=== PATIENT | male | born 1980 | race Caucasian/White ===

== ENCOUNTER 2021-12-21 16:30 | Emergency (ER) | payer OTHER ==
[~2021-12-21] VITALS: Ht 175.3 cm; Wt 65.8 kg
[2021-12-21 16:32] VITALS: BP 116/72
[2021-12-21] MEDS ORDERED: ANTIHEMOPHILIC FACTOR RECOMBINANT IV (16:36)
== END 2021-12-21 18:25 | disposition home or self-care (01) ==
LOC: ER 16:30
DX: S80.12XA Contusion of left lower leg, initial encounter (principal); Z20.822 Contact with and (suspected) exposure to COVID-19; F17.210 Nicotine dependence, cigarettes, uncomplicated; Z79.899 Other long term (current) drug therapy; W19.XXXA Unspecified fall, initial encounter; Y93.89 Activity, other specified; Y92.89 Other specified places as the place of occurrence of the external cause; Y99.8 Other external cause status